=== PATIENT | female | born 1950 | race African-American/Black ===

== ENCOUNTER 2020-05-24 09:42 | Emergency (ER) | payer OTHER, BC ==
[~2020-05-24] VITALS: Ht 162.6 cm; Wt 104.3 kg
[2020-05-24] MEDS ORDERED: LIPITOR 20 MG T20 M1 PO (09:52)
[2020-05-24] MEDS ORDERED: METFORMIN HCL500 M3 PO (09:53)
[2020-05-24] MEDS ORDERED: ACCURETIC 20-21 EACH PO (09:53)
[2020-05-24] MEDS ORDERED: TRANSDERM-SCOP1 EACH TOP (09:54)
[2020-05-24] MEDS ORDERED: FLEXERIL PO (09:54)
[2020-05-24] MEDS ORDERED: GABAPENTIN100 MG PO (09:55)
[2020-05-24] MEDS ORDERED: TRAMADOL 50 MG50 MG PO (09:56)
[2020-05-24] MEDS ORDERED: FLONASE 0.05%50 MCG NARES (09:56)
[2020-05-24] MEDS ORDERED: ZYRTEC 10 MG TA10 MG PO (09:56)
[2020-05-24] MEDS ORDERED: LIDODERM1 EACH TOP (11:03)
[2020-05-24] MEDS ORDERED: CIPRODEX OTIC7.5 ML OTIC (11:03)
[2020-05-24] MEDS ORDERED: VALIUM2 MG PO (11:03)
[2020-05-24 11:17] VITALS: BP 120/81
== END 2020-05-24 11:18 | disposition home or self-care (01) ==
LOC: ER 09:42
DX: H92.01 Otalgia, right ear (principal); M62.838 Other muscle spasm; I10 Essential (primary) hypertension; E78.5 Hyperlipidemia, unspecified; E11.9 Type 2 diabetes mellitus without complications; K21.9 Gastro-esophageal reflux disease without esophagitis; Z88.1 Allergy status to other antibiotic agents; Z88.2 Allergy status to sulfonamides; Z88.8 Allergy status to other drugs, medicaments and biological substances